=== PATIENT | male | born 1980 | race Caucasian/White ===

== ENCOUNTER 2019-03-10 02:02 | Emergency (ER) | payer OTHER ==
[~2019-03-10] VITALS: Ht 170.2 cm; Wt 81.7 kg
[~2019-03-10 02:02] MED LIST: Norco 5-325 Ta1 EACH PO; Percocet 10-321 EACH PO; Zofran4 MG PO
[2019-03-10] MEDS ORDERED: Cleocin HCl300 MG PO (02:34)
== END 2019-03-10 03:30 | disposition home or self-care (01) ==
LOC: ER 02:02
DX: L02.211 Cutaneous abscess of abdominal wall (principal); Z88.0 Allergy status to penicillin; F17.200 Nicotine dependence, unspecified, uncomplicated
CPT/HCPCS: 96365; 99282-25

== ENCOUNTER 2019-12-03 23:27 | Emergency (ER) | payer OTHER ==
[~2019-12-03] VITALS: Ht 182.9 cm; Wt 95.2 kg
[~2019-12-03 23:27] MED LIST changes: +Cleocin HCl300 MG PO
[2019-12-03 23:45] LABS: BASOPHILS ABSOLUTE AUTO 0.04 K/mm3 (0.00-0.23); BASOPHILS PERCENT AUTO 1 % (0-2); EOSINOPHILS PERCENT AUTO 2 % (0-6); Hemoglobin 14.3 g/dL (13.5-17.5); IMMATURE GRAN ABSOLUTE AUTO 0.03 K/mm3 (0.00-0.10); IMMATURE GRAN PERCENT AUTO 0 % (0-1); LYMPHOCYTES ABSOLUTE AUTO 2.15 K/mm3 (0.84-5.20); LYMPHOCYTES PERCENT AUTO 25 % (21-46); MONOCYTES ABSOLUTE AUTO 0.47 K/mm3 (0.16-1.47); MONOCYTES PERCENT AUTO 5 % (4-13); Mean Corpuscular HGB 29.4 pg (26.0-34.0); Mean Corpuscular HGB Conc 32.5 g/dL (31.5-36.5); Mean Corpuscular Volume 91 fL (80-100); Mean Platelet Volume 10.7 fL (9.1-12.4); NEUTROPHILS ABSOLUTE AUTO 5.74 K/mm3 (1.96-9.15); NEUTROPHILS PERCENT AUTO 67 % (41-73); Platelet Count 255 K/mm3 (150-400); RDW Coefficient Variation 12.1 % (11.7-14.2); RDW Standard Deviation 40.1 fL (35.1-46.3); Red Blood Cell Count 4.86 M/mm3 (4.30-5.90); White Blood Cell Count 8.63 K/mm3 (4.00-11.30)
[2019-12-04 00:01] LABS: Alanine Aminotransfer (ALT/SGP 44 U/L (12-78); Albumin, Blood 3.7 g/dL (3.4-5.0); Albumin/Globulin Ratio 1.2 (0.8-1.8); Alk Phos 91 U/L (50-136); Anion Gap 10 mmol/L (6-16); Aspartate Aminotrans (AST/SGOT 21 U/L (12-37); Bilirubin, Total 0.6 mg/dL (0.1-1.0); Blood Urea Nitrogen 9 mg/dL (8-24); Bun/Creatinine Ratio 11.4 (12.0-20.0); CO2, Blood 24 mmol/L (21-32); Calcium, Blood 8.7 mg/dL (8.5-10.1); Chloride, Blood 108 mmol/L (98-108); Creatinine, Blood 0.79 mg/dL (0.60-1.20); Ethanol (Alcohol), Blood, Med 35 mg/dL; Globulin, Blood 3.1 g/dL (2.2-4.0); Glomerular Filtration Rate >60 (60-); Glucose, Blood 98 mg/dL (70-99); Sodium, Blood 142 mmol/L (136-145); Total Protein, Blood 6.8 g/dL (6.4-8.2)
[2019-12-04 00:06] LABS: International Normalized Ratio 0.99; Prothrombin Time Results 10.6 Sec (9.7-11.5)
== END 2019-12-04 00:37 | disposition home or self-care (01) ==
LOC: ER 23:27
PROVIDERS: Emergency Medicine
DX: Z04.1 Encounter for examination and observation following transport accident (principal); F17.200 Nicotine dependence, unspecified, uncomplicated; Z88.0 Allergy status to penicillin; V89.2XXA Person injured in unspecified motor-vehicle accident, traffic, initial encounter
CPT/HCPCS: 36415; 70450; 71045; 72125; 80053; 83690; 85025; 85610; 99284-25; G0480

== ENCOUNTER 2021-10-19 18:10 | Emergency (ER) | payer OTHER ==
[~2021-10-19] VITALS: Ht 170.2 cm; Wt 86.2 kg
== END 2021-10-19 19:20 | disposition home or self-care (01) ==
LOC: ER 18:10
DX: F32.A Depression, unspecified (principal); F43.10 Post-traumatic stress disorder, unspecified; F17.200 Nicotine dependence, unspecified, uncomplicated; Z88.0 Allergy status to penicillin
CPT/HCPCS: 99284

== ENCOUNTER 2024-05-20 19:38 | Emergency (ER) | payer OTHER ==
[~2024-05-20] VITALS: Ht 172.7 cm; Wt 86.2 kg
[2024-05-20 20:48] VITALS: BP 134/81
== END 2024-05-20 21:13 | disposition left against medical advice (07) ==
LOC: ER 19:38
DX: R51.9 Headache, unspecified (principal); Z53.29 Procedure and treatment not carried out because of patient's decision for other reasons
CPT/HCPCS: 93005; 93010; 99281-25

== ENCOUNTER 2024-09-28 07:12 | Emergency (ER) | payer OTHER ==
[~2024-09-28] VITALS: Ht 170.2 cm; Wt 86.6 kg
[2024-09-28] MEDS ORDERED: Ketorolac Tromethamine 30mg Vial IV ONE (07:40)
[2024-09-28] MEDS ORDERED: NS 1,000 ML IV SCH (07:40)
[2024-09-28 08:08] LABS: BASOPHILS ABSOLUTE AUTO 0.07 K/mm3 (0.00-0.23); BASOPHILS PERCENT AUTO 0 % (0-2); EOSINOPHILS ABSOLUTE AUTO 0.11 K/mm3 (0.00-0.68); EOSINOPHILS PERCENT AUTO 1 % (0-6); Hematocrit 39.3 % (37.0-53.0); Hemoglobin 12.8 g/dL (13.5-17.5); IMMATURE GRAN ABSOLUTE AUTO 0.09 K/mm3 (0.00-0.10); IMMATURE GRAN PERCENT AUTO 1 % (0-1); LYMPHOCYTES ABSOLUTE AUTO 1.56 K/mm3 (0.84-5.20); LYMPHOCYTES PERCENT AUTO 8 % (21-46); MONOCYTES ABSOLUTE AUTO 0.96 K/mm3 (0.16-1.47); MONOCYTES PERCENT AUTO 5 % (4-13); Mean Corpuscular HGB 28.7 pg (26.0-34.0); Mean Corpuscular HGB Conc 32.6 g/dL (31.5-36.5); Mean Corpuscular Volume 88 fL (80-100); Mean Platelet Volume 10.2 fL (9.1-12.4); NEUTROPHILS ABSOLUTE AUTO 16.46 K/mm3 (1.96-9.15); NEUTROPHILS PERCENT AUTO 85 % (41-73); Platelet Count 202 K/mm3 (150-400); RDW Coefficient Variation 12.7 % (11.7-14.2); RDW Standard Deviation 40.9 fL (35.1-46.3); Red Blood Cell Count 4.46 M/mm3 (4.30-5.90); White Blood Cell Count 19.25 K/mm3 (4.00-11.30)
[2024-09-28 08:31] LABS: Bilirubin, Total 0.9 mg/dL (0.1-1.0); Bun/Creatinine Ratio 20.5 (12.0-20.0); Calcium, Blood 8.2 mg/dL (8.5-10.1); Creatinine, Blood 0.83 mg/dL (0.60-1.20); Globulin, Blood 3.1 g/dL (2.2-4.0); Potassium, Blood 3.7 mmol/L (3.5-5.5); Total Protein, Blood 6.1 g/dL (6.4-8.2)
[2024-09-28 09:05] LABS: CORONAVIRUS COVID-19 AG Negative (NEGATIVE); INFLUENZA A AG Negative (NEGATIVE); INFLUENZA B AG Negative (NEGATIVE)
[2024-09-28] MEDS ORDERED: ONDA4ODT MM (09:34)
[2024-09-28] MEDS ORDERED: NAPR500 PO (09:34)
[2024-09-28 09:35] VITALS: BP 125/66
== END 2024-09-28 09:48 | disposition home or self-care (01) ==
LOC: ER 07:12
PROVIDERS: Emergency Medicine
DX: B34.9 Viral infection, unspecified (principal); R07.89 Other chest pain; F17.210 Nicotine dependence, cigarettes, uncomplicated; Z88.0 Allergy status to penicillin
CPT/HCPCS: 71045; 80053; 84484; 85025; 87428-QW; 93005; 93010; 96361; 96374; 99285-25; J1885; J7030